=== PATIENT | male | born 1970 | race Caucasian/White ===

== ENCOUNTER 2018-12-17 10:13 | Outpatient (CLI) | payer OTHER, SELFPAY ==
[2018-12-17 12:36] LABS: Anion Gap 10.7 mmol/L (3-11); BUN 20 mg/dL (7-18); CO2 29.3 mmol/L (21.0-32.0); CREATININE 0.81 mg/dL (0.70-1.30); Calcium 9.9 mg/dL (8.5-10.1); Chloride 99 mmol/L (98-107); Glucose 93 mg/dL (70-100); Potassium 4.1 mmol/L (3.5-5.1); Sodium 139 mmol/L (136-145)
== END 2018-12-17 10:33 ==
PROVIDERS: PCP Family Medicine; Visit Provider Family Medicine
DX: I10 Essential (primary) hypertension (principal)
CPT/HCPCS: 36415; 80048

== ENCOUNTER 2019-04-19 08:58 | Outpatient (CLI) | payer OTHER, SELFPAY ==
--- NOTE | 2019-04-19 08:40 | DI.RAD_ITS ---
SYMPTOMS/DIAGNOSIS: LT KNEE PAIN LEG LENGTH STUDY: The left leg measures 94 cm. The right leg 96 cm. Degenerative changes involving the left knee are identified. LEFT KNEE: Severe DJD involving the left knee is noted.
== END 2019-04-19 09:18 ==
PROVIDERS: PCP Family Medicine; Visit Provider Physician Assistant
DX: M25.562 Pain in left knee; M17.12 Unilateral primary osteoarthritis, left knee; M21.70 Unequal limb length (acquired), unspecified site
CPT/HCPCS: 73560; 77073

== ENCOUNTER 2019-06-15 09:10 | Outpatient (CLI) | payer OTHER, SELFPAY ==
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
[2019-06-15 10:32] LABS: HCT 41.2 % (40.0-50.0); HGB 13.9 g/dL (13.5-17.5); Mean Corp. HGB Concentration 33.7 g/dL (32.0-36.0); Mean Corpuscular Hemoglobin 30.7 pg (27.0-33.0); Mean Corpuscular Volume 90.9 fL (80-95); Mean Platelet Volume 9.4 fL (8.0-11.0); Platelet Count 213 x1000/uL (130-400); RBC 4.53 m/cumm (4.50-6.00); RBC Distribution Width 12.5 % (11.8-14.1); White Blood Cell Count 3.85 k/cumm (4.4-10.8)
[2019-06-15 12:20] LABS: BUN 22 mg/dL (7-18); Calcium 9.5 mg/dL (8.5-10.1); Chloride 102 mmol/L (98-107); Glucose 94 mg/dL (70-100); Potassium 4.2 mmol/L (3.5-5.1); Sodium 141 mmol/L (136-145)
== END 2019-06-15 09:30 ==
PROVIDERS: PCP Family Medicine; Visit Provider Student in an Organized Health Care Education/Training Program
DX: M17.12 Unilateral primary osteoarthritis, left knee (principal); Z01.812 Encounter for preprocedural laboratory examination
CPT/HCPCS: 36415; 80048; 85027; NC

== ENCOUNTER 2019-06-22 12:52 | Observation (INO) | payer OTHER, SELFPAY ==
[2019-06-22] VITALS (9 sets, daily range): BP systolic 95–145; BP diastolic 48–95; PULSE 60–73; RESP 15–24; TEMP 36.4–36.7; O2SAT 97–99
[2019-06-22] MEDS: Lactated Ringers 1,000 ML 80 ML IV ×2 (10:22→16:24)
[2019-06-22] MEDS: Acetaminophen 500 MG TAB 1000 MG PO ×2 (10:28→19:53)
[2019-06-22] MEDS: Celecoxib 200 MG CAP 400 MG PO (10:29)
[2019-06-22] MEDS: Gabapentin 300 MG CAP PO ×2 (10:29→21:49)
[2019-06-22] MEDS: Bupivacaine 0.25% Pres-Free 10 ML VIAL (11:15)
[2019-06-22] MEDS: ceFAZolin 2 GM/50 ML BAG IVPB (12:51)
[2019-06-22] MEDS: Bupivacaine 0.25% Pres-Free 30 ML VIAL (15:02)
[2019-06-22] MEDS: Normal Saline 20 ML VIAL (15:02)
[2019-06-22] MEDS: Ketorolac 30 MG/ML VIAL (15:02)
[2019-06-22] MEDS: ceFAZolin 1 GM/50 ML BAG IVPB (18:06)
[2019-06-22] MEDS: Celecoxib 200 MG CAP PO (19:52)
[2019-06-23] MEDS: ceFAZolin 1 GM/50 ML BAG IVPB ×2 (01:13→10:22)
[2019-06-23 03:20] VITALS: BP 113/68; PULSE 59; RESP 20; TEMP 36.5; O2SAT 98
[2019-06-23] MEDS: Lactated Ringers 1,000 ML 80 ML IV (04:45)
[2019-06-23] MEDS: oxyCODONE 5 MG TAB PO ×2 (04:45→10:27)
--- NOTE | 2019-06-23 05:38 | W.PM.OP ---
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 Depuy Attune Cementless Cruciate Retaining Femoral Component, Size 8 2. Depuy Attune Cementless Rotating Platform Tibial Component, Size 7 3. Depuy Attune 8x8mm CR/RP Poly 4. Depuy Attune Patellar Component, Size 38mm Indications: I have seen Earle in clinic for symptoms of knee arthritis, confirmed with radiographic findings. He has exhausted nonoperative methods and was having significant limitations in daily function and desired better function and less pain. I discussed the technical details of a knee replacement. I explained the risks of the procedure to include, but not limited to, bleeding, infection, pain, stiffness, fracture, damage to nerves and vessels, damage to muscles and tendons, loosening, need for repeat procedure, blood clot and cardiopulmonary demise. Despite these risks, Earle elected to proceed. Findings: There was significant signs of arthritis throughout the knee. There was also some residual deformity to the anterior femur and distal femur from the fracture. Procedure Description: Earle was greeted in the preoperative holding area where the correct side was identified and marked. The consent was reviewed with the patient and signed. The history and physical was updated. All questions were answered. Preoperative mediacations were administered: Acetaminophen 1000mg, Celebrex 400mg, Gabapentin 300mg, and Oxycontin 10mg. An adductor canal block was then administered by the anesthesia team in the PACU. Earle was taken back to the operating room. A spinal anesthestic was then administered. The patient was placed into the supine position on the operating room table. A nonsterile tourniquet was placed high onto the leg but not used. Posts were placed for positioning during the procedure. All bony prominences were well padded. Prophylactic antibiotics in the form of Cefazolin were administered. 1g of Tranxemic Acid was given intravenously within 30 minutes of incision. The left leg was then prepped with Chloraprep and draped in a standard fashion with impervious stockinette and extremity drape with Iodine impregnated skin protection. A timeout to confirm correct identity, side and site, procedure, allergies, anesthesia, and medical concerns was performed. With the knee in some flexion, a midline incision was made overlying the knee. Full thickness skin flaps were raised once the extensor mechanism was encountered. These were raised medially and laterally. Any bleeding was controlled with electrocautery. Once the extensor mechanism was fully exposed, a medial parapatellar arthrotomy was performed in a flexed position. All bleeding from the arthrotomy and the geniculate arteries was coagulated. A medial subperiosteal peel was performed with electrocautery to the midcoronal plane. The fat pad was removed while keeping the patellar tendon protected. The anterior distal femur synovium was removed for later visualization. The ACL and PCL were resected and the anterior horn of the lateral meniscus was transected. The knee was then flexed with the patella everted. Large osteophytes from the tibia were removed. Large osteophytes from the femur were removed. There is some notable irregularity to the anterior distal femur. A single starting pin was then placed 1cm anterior to the PCL insertion and the notch in the direction of the femoral head. The OrthoAlign device was applied over the pin. It was oriented to be in line with the epicondylar axis and the trochlear groove. It was then pinned into place. The navigation computer was then turned on and calibrated. The distal femur cut was set at 0 degrees varus/valgus and 3 degrees flexion. The distal femur cutting guide then was positioned for a 9mm cut. The distal femur was cut with an oscillating saw while protecting the soft tissues. The tibia was then addressed. The OrthoAlign device was placed over the tibial tubercle and medial tibia and secured into position. Once again, OrthoAlign was calibrated and then set for a 0 degree varus/valgus cut and 7 degrees of posterior slope. With this locked into position, the cut thickness stylus was used to assess cut thickness. The medial side, most involved side, was set for a 4mm cut. This was then held in position and pinned into place with 2 additional pins and a cross pin for stability. The medial and lateral collateral ligaments were protected and the cut was performed. With this completed, it was assessed and noted to be of appropriate dimensions. The guide and OrthoAlign was removed. A spacer block was inserted and the knee was brought into extension. The 7mm spacer block provided full extension, without hyperextension and with stability of both the medial and lateral collateral ligaments was assessed. The pins from the femur and the tibia were then removed. The distal femur was then sized. The anterior stylus was placed onto the lateral ridge of the anterior femur. This indicated a size 8 femur. The external rotation of the guide was adjusted to 5 degrees to match the epicondylar axis, perpendicular to Nuzhat?s line. The 4-in-1 cutting guide was the placed. The posterior medial femur cut was evaluated and appeared of good thickness. The spacer block was inserted underneath the cutting guide and stability was confirmed in 90 degrees of flexion. An kala wing was used to confirm appropriate position of the anterior cut to avoid notching. This cutting guide was ensured to be flush on the cut surface and then pinned into place with headed pins. While protecting the soft tissues, quad tendon, and collateral ligaments, the anterior and posterior cuts were performed with a saw. The central two pins were removed and the posterior and anterior chamfers were cut next. The notch-cutting guide was placed. This was pinned to lateralize the femoral component as much as possible while keeping it flush on the cut surface. This was then pinned into position. A reciprocating saw was used to make the notch cut. A rasp smoothed the cut surfaces. A trial posterior stabilized femoral component was then inserted, impacted down to the cut surfaces, and the lug holes were drilled. A provisional trial tibial component was placed and the knee was brought through range of motion. The polyethylene was trialed until there was good flexion and extension with excellent stability to the medial and lateral collaterals. The patella was tracking without thumbs. The tibial cut surface was fully exposed. The medial and lateral menisci were removed. The tibia was then sized as a 7. The tibia had been previously marked during trialing to correspond to the center of the tibial component to help with rotation. The trial was aligned to this kofi, approximately rotated to the medial 1/3rd of the tibial tubercle. The trial was pinned into place. The tibia was prepared with a reamer and a keel punch and 4 drill holes. The knee was then brought into extension and the patella was measured as 25 mm. Using the patellar clamp and cut guide, this was resected to a flat surface with at least 13mm of thickness remaining. The size 38 patella fit the best. This was oriented and then clamped into position. The lugs were drilled. The trial components were removed. The final components, except for the polyethylene were opened on the back table. The periosteal and capsular tissues, especially posteriorly, around the knee were then systematically injected with a periarticular cocktail consisting of 50cc 0.25% Marcaine, 30mg Ketorolac, 20cc of Exparal and 50cc of injectable saline. The knee was thoroughly irrigated with a pulse lavage to remove any loose debris on the cut surfaces and dried. The knee was also irrigated with Irrisept, chlorhexidine solution. The tibial component was then inserted into the cut surface and impacted into position after aligning appropriately. There is excellent positioning of the tibial component onto the tibial surface with no gapping. The femoral cut surface was once again cleaned and dried. The femoral component was lined with the lug holes and impacted. It was ensured to be down against the cut surface. While this was being performed, one batch of cement was prepared on the back table. This was then manually pressurized into the patellar surface and the 38 mm patellar button was inserted and clamped. The trial polyethylene was then inserted and the leg was brought through range of motion. There is good stability both in extension and in flexion. There was some rocking of the polyethylene at about 130 degrees of flexion but no spin out. After the cement had finally cured, approximately 15min, the clamp was removed from the patella. A size 8mm polyethylene component provided the best range of motion and stability with less than 2mm gapping with medial and lateral stress and full extension without significant hyperextension. The patella was tracking with a no-thumbs technique. The trial poly was removed. The poly component was then inserted and impacted into position after cleaning and drying the tibial tray. The capsule was then reapproximated with a No. 1 Vicryl at multiple locations. The capsule was finally closed with a No. 2 Stratafix, barbed suture. The second dosing of 1g TXA was started. Deep tissues were then reapproximated with 0 Vicryl and 2-0 Vicryl. The skin was closed with a running 3-0 Monocryl in a subcuticular fashion. This was reinforced with skin glue. A Mepilex silver dressing was applied along with a [id number] SOY wrap. A CryoCuff was applied. Earle was transferred to the hospital bed without difficulty an suffering no apparent complication. Earle has a good prognosis. Physical therapy will start today and without restrictions, weight-bearing as tolerated. Aspirin 81mg BID will be used for DVT prophylaxis.
[2019-06-23] MEDS: Celecoxib 200 MG CAP PO (07:39)
[2019-06-23] MEDS: Pantoprazole 40 MG TABCR PO (07:39)
[2019-06-23] MEDS: Acetaminophen 500 MG TAB 1000 MG PO (07:39)
[2019-06-23] MEDS: Dexamethasone 4 MG TAB PO (07:39)
[2019-06-23 07:41] VITALS: BP 141/81; PULSE 74; RESP 16; TEMP 36; O2SAT 99
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
== END 2019-06-23 11:50 | disposition home or self-care (01) ==
LOC: MS 18:07
PROVIDERS: Admitting Provider Student in an Organized Health Care Education/Training Program; PCP Family Medicine; Visit Provider Student in an Organized Health Care Education/Training Program
PROC: 0SRD0J9 Replacement of Left Knee Joint with Synthetic Substitute, Cemented, Open Approach (ICD-10-PCS; CPT 27447; principal; 2019-06-22 11:45)
DX: M17.32 Unilateral post-traumatic osteoarthritis, left knee (principal); M25.562 Pain in left knee; Z96.652 Presence of left artificial knee joint; S72.452 Displaced supracondylar fracture without intracondylar extension of lower end of left femur; V03.99XS Pedestrian with other conveyance injured in collision with car, pick-up truck or van, unspecified whether traffic or nontraffic accident, sequela; Z23 Encounter for immunization
CPT/HCPCS: 27447; C1776; 76942; 97162; NC; G0378; J0360; J0690; J1100; J1885; J2250; J2405; J8540

== ENCOUNTER 2019-07-08 09:36 | Outpatient (CLI) | payer OTHER, SELFPAY ==
--- NOTE | 2019-07-08 09:45 | DI.RAD_ITS ---
EXAM: XR KNEE LT 1V, Standing alignment XR INDICATION: 1ST POST OP TOTAL KNEE. COMPARISON: XR knee LT 1V from 04/19/2019 XR standing alignment from 04/19/2019 XR STANDING ALIGNMENT from 07/08/2019 TECHNIQUE: 2D digital imaging was performed. FINDINGS: Left knee: The patient is status post placement of a left total knee per prosthesis. The component s appear well aligned. There is some anterior soft tissue swelling. Standing alignment: Standing AP views were performed from the iliac crests through the ankles. There is a left total knee prosthesis. The right knee shows preserved joint spaces. Hip joint spaces are well maintained. The right femoral head projects superior to the left by 18 millimeters. There is mild deformity of the distal left femur related to an old fracture. There are mild degenerative carvalho ges of both ankles. IMPRESSION: Left total knee prosthesis. Leg length discrepancy.
== END 2019-07-08 09:56 ==
PROVIDERS: PCP Family Medicine; Visit Provider Student in an Organized Health Care Education/Training Program
DX: Z96.652 Presence of left artificial knee joint (principal); Z47.1 Aftercare following joint replacement surgery; M21.70 Unequal limb length (acquired), unspecified site
CPT/HCPCS: 73560; 77073

== ENCOUNTER 2019-11-18 11:11 | Outpatient (CLI) | payer OTHER, SELFPAY ==
--- NOTE | 2019-11-18 10:30 | DI.RAD_ITS ---
EXAM: XR KNEE LT 3V AP,LAT,CHRISTEL CLINICAL HISTORY: worsening left knee pain TECHNIQUE: 2D digital imaging was performed. COMPARISON: XR STANDING ALIGNMENT from 07/08/2019 XR KNEE LT 1V from 07/08/2019 FINDINGS: There has been no change in the appearance of the total knee prosthesis. Old healed fracture deform ity of the distal femur is again noted. IMPRESSION: Stable appearance of knee prosthesis.
== END 2019-11-18 11:31 ==
PROVIDERS: PCP Family Medicine; Visit Provider Student in an Organized Health Care Education/Training Program
DX: M25.562 Pain in left knee (principal); Z96.652 Presence of left artificial knee joint; Z47.1 Aftercare following joint replacement surgery
CPT/HCPCS: 73562

== ENCOUNTER 2019-11-18 12:26 | Outpatient (REF) | payer OTHER, SELFPAY ==
[2019-11-18 14:28] LABS: Source L KNEE
[2019-11-18 14:29] LABS: Clarity CLOUDY
[2019-11-18 14:31] LABS: Polynuclear Cells 7 % (0-0)
[2019-11-18 14:32] LABS: Mononuclear Cells 93 % (0-0)
== END 2019-11-18 12:46 ==
LOC: LBN 12:26
PROVIDERS: PCP Family Medicine; Visit Provider Student in an Organized Health Care Education/Training Program
DX: M25.462 Effusion, left knee (principal)
CPT/HCPCS: 87070; 87075; 87205; 89051

== ENCOUNTER 2020-02-11 09:34 | Outpatient (CLI) | payer OTHER, SELFPAY ==
--- NOTE | 2020-02-11 08:00 | DI.RAD_ITS ---
EXAM: XR KNEE LT 3V AP,LAT,CHRISTEL INDICATION: knee pain. COMPARISON: CR XR KNEE LT 3V AP,LAT,CHRISTEL from 11/18/2019 TECHNIQUE: 2D digital imaging was performed. FINDINGS: There has been no change in the total knee prosthesis or surrounding bone. Deformity of the distal femur related to old fracture is again noted. DATA REPOSITORY: RADIATION DOSE DELIVERED:
[2020-02-11 12:09] LABS: Clarity Cloudy
[2020-02-11 12:29] LABS: Mononuclear Cells 98 % (0-0); Polynuclear Cells 2 % (0-0)
== END 2020-02-11 09:54 ==
PROVIDERS: PCP Family Medicine; Referring Provider Family Medicine; Visit Provider Student in an Organized Health Care Education/Training Program
DX: M25.562 Pain in left knee (principal); Z96.652 Presence of left artificial knee joint
CPT/HCPCS: 73562; 89051; 89060

== ENCOUNTER 2020-07-03 11:49 | Outpatient (CLI) | payer OTHER, SELFPAY ==
--- NOTE | 2020-07-03 07:45 | DI.RAD_ITS ---
EXAM: XR KNEE LT 2V AP,LAT CLINICAL HISTORY: annual f/u tka TECHNIQUE: COMPARISON: CR XR KNEE LT 3V AP,LAT,CHRISTEL from 02/11/2020 FINDINGS: Two views were obtained and show total knee joint replacement position. Components appear well seate d. Note is again made of old healed fracture of the distal femoral diaphyseal metaphyseal junction. IMPRESSION: RADIATION DOSE DELIVERED: Total DLP Total DLP
== END 2020-07-03 12:09 ==
PROVIDERS: PCP Nurse Practitioner Family; Referring Provider Nurse Practitioner Family; Visit Provider Student in an Organized Health Care Education/Training Program
DX: Z96.652 Presence of left artificial knee joint (principal)
CPT/HCPCS: 73560

== ENCOUNTER 2020-08-17 02:39 | Outpatient (CLI) | payer OTHER, SELFPAY ==
[2020-08-18 15:25] LABS: COVID-19 RT-PCR Result NEGATIVE (Negative)
== END 2020-08-17 02:59 ==
PROVIDERS: PCP Nurse Practitioner Family; Visit Provider Surgery
DX: Z11.52 Encounter for screening for COVID-19 (principal); Z01.818 Encounter for other preprocedural examination
CPT/HCPCS: U0003

== ENCOUNTER 2020-08-21 12:13 | Day surgery (SDC) | payer OTHER, SELFPAY ==
--- NOTE | 2020-08-18 15:14 | NUR.NOTE ---
X2 Attempts to reach patient unsuccessfully, Voicemail left. arrival time of 1215 given to patient, NPO status explained, enter through main entrance, have ride home set up in place prior to arrival, review bowel prep instructions prior to starting. Nursing Note:
--- NOTE | 2020-08-21 07:12 | COLE_ITS ---
Date of service: 08/21/20 Time of Service: 13:38 Colonoscopy Report Date of procedure: 08/21/20 Pre-op diagnosis general: Colon Cancer Screening Post-op diagnosis procedure note: same Procedure: Colonoscopy Surgeon: Deepali Jones Anesthesia proc note operative: other (General/ASA 2/Franco Villaseñor, WILBERT) Estimated blood loss (mL): 0 Pathology: none sent Complications: None Disposition: same day Indications: The patient is here for Colonoscopy pre-op. He has no family history of colon cancer. He has not had any bowel habit changes. -Discussed colonoscopy bowel prep as well as the procedure. Discussed possible complications of the procedure to include bleeding, pain, perforation, missed small lesion/polyp, sore throat, aspiration and adverse reaction to the medications. Questions were answered to patient?s satisfaction. No guarantees were implied or given. Prep: Miralax/Dulcolax Procedure Start Time: 13:38 Procedure End Time: 13:54 Retraction Time: 8 minutes Findings: Normal healthy colon Procedure Description: After informed consent was obtained the patient was taken to the procedure room and placed in a left decubitous position. Monitors were applied and a time out was done. The patients name, date of , pr ocedure, allergies to medications and metal in their body was reviewed. The patient was then sedated. Once sedated and comfortable a rectal exam was done. External exam was normal. Internal exam revealed a normal sphincter tone and no palpable masses. The prostate felt smooth. The scope was then introduced and retro-flexed. No internal hemorrhoids, polyps or masses were identified on retro-flexion. The scope was then advanced to the cecum without difficulty. The ileocecal valve and appendiceal orifice were identified. The prep was adequate. The scope was then slowly retracted over 8 minutes back into the rectum. There were no polyps. There was no diverticulosis noted. The scope was removed and the patient was woken up and taken back to Same day surgery in stable condition. The patient tolerated the procedure well and there were no immediate complications. Follow up: The patient should follow up in 10 years unless they develop changes in bowel habits or other new gastrointestinal complaints.
--- NOTE | 2020-08-21 07:12 | W.PM.DSUDISC ---
Discharge Plan Disposition Patient Disposition: HOME Condition: Good Discharge Details Reason For Visit: Colon Cancer Screening Attending Provider: Deepali Jones Primary Care Provider: Citlalli Jimenez Home Meds and New Rx's Prescriptions: Continued acetaminophen 500 mg tablet 1,000 mg PO Q8H PRN (Reason: pain) Qty: 90 RF: 3 Excedrin Migraine 1 EACH tablet 1 ea PO PRN RF: 0 sumatriptan succinate [Imitrex] 50 mg tablet 50 mg PO PRN Qty: 6 RF: 4 Discontinued polyethylene glycol 3350 17 gram/dose powder 238 g PO ONCE Qty: 238 RF: 0 bisacodyl [Dulcolax (bisacodyl)] 5 mg tablet,delayed release (DR/EC) 5 mg PO ONCE Qty: 4 RF: 0 Discharge Instructions Additional Instructions: Findings: normal colonoscopy Follow up: 10 years Please call if you develop: fevers >101.5 Nausea or Vomiting Abdominal pain that is not transient DAY SURGERY UNIT POST ENDOSCOPY INSTRUCTIONS 1. Because there will be medication in your system for the next 24 hours, you may feel a little sleepy. Your coordination will be affected. Therefore: a. Do not drive or operate dangerous equipment for 24 hours. b. Do not drink alcohol beverages for 24 hours (not even beer). c. Plan to go home and rest for the day. 2. Generally there are no restrictions on your activity after a day or so has gone by, but you may feel a bit fatigued for a few days. 3 After you arrive home you may have a light meal and return to a normal diet as you can tolerate it without feeling sick to your stomach. 4. After surgery, you may feel pain or discomfort. This should be only transient, but if it persists please contact your doctor. 5. If there are any questions regarding the findings of your procedure, please feel free to contact your doctor. 6. If you are unable to contact your doctor with a problem, contact the hospital at [phone]. 7. Continue all your regular medications unless directed otherwise. I understand the above instructions and have no questions. Signature of Patient or Responsible Adult Escort Date/Time Name of Responsible Adult Escort Signature of Nurse Date/Time Activity:: Activity as Tolerated Diet:: As Tolerated Discharge Orders Discharge Orders: Discharge Order (Routine); Ordered 08/21/20 Ordered By: Deepali Jones
[2020-08-21 12:45] VITALS: BP 112/81; PULSE 105; RESP 16; TEMP 36.6; O2SAT 96
[2020-08-21] MEDS: Lactated Ringers 1,000 ML 80 ML IV (13:03)
[2020-08-21 14:26] VITALS: BP 127/85; PULSE 80; RESP 16; TEMP 36.7; O2SAT 97
== END 2020-08-21 14:50 | disposition home or self-care (01) ==
LOC: SUR 12:13
PROVIDERS: PCP Nurse Practitioner Family; Visit Provider Surgery
PROC: 0DJD8ZZ Inspection of Lower Intestinal Tract, Via Natural or Artificial Opening Endoscopic (ICD-10-PCS; CPT 45378; principal; 2020-08-21 13:30)
DX: Z12.11 Encounter for screening for malignant neoplasm of colon (principal)
CPT/HCPCS: 45378

== ENCOUNTER 2020-08-23 10:34 | Outpatient (REF) | payer OTHER, SELFPAY ==
[2020-08-23 13:39] LABS: HCT 43.4 % (40.0-50.0); HGB 14.7 g/dL (13.5-17.5); MCH 30.5 pg (27.0-33.0); MCHC 33.9 % (32.0-36.0); Platelet Count 226 10^3/uL (130-400); RBC 4.82 10^6/uL (4.36-5.78); RDW 11.9 % (11.8-14.1); RDW-SD 39.3 fL; WBC 4.15 10^3/uL (4.4-10.8)
[2020-08-23 13:58] LABS: ALT 36 U/L (16-63); AST 27 U/L (15-37); Albumin 4.5 g/dL (3.4-5.0); Alkaline Phosphatase 49 U/L (46-116); Anion Gap 5.8 mmol/L (3-11); BUN 20 mg/dL (7-18); Bilirubin, Total 2.7 mg/dL (0.2-1.0); CO2 30.2 mmol/L (21.0-32.0); CREATININE 1.01 mg/dL (0.70-1.30); Calcium 9.7 mg/dL (8.5-10.1); Chloride 100 mmol/L (98-107); Glucose 88 mg/dL (74-106); Potassium 4.3 mmol/L (3.5-5.1); Sodium 136 mmol/L (136-145); Total Protein 7.9 g/dL (6.4-8.2)
== END 2020-08-23 10:54 ==
LOC: NCHCN 10:34
PROVIDERS: PCP Nurse Practitioner Family; Visit Provider Nurse Practitioner Family
DX: Z01.818 Encounter for other preprocedural examination (principal)
CPT/HCPCS: 80053; 85027

== ENCOUNTER 2020-08-28 04:41 | Outpatient (CLI) | payer OTHER, SELFPAY ==
[2020-08-29 14:35] LABS: COVID-19 RT-PCR UVMMC Result Negative (Negative)
== END 2020-08-28 05:01 ==
PROVIDERS: PCP Nurse Practitioner Family; Visit Provider Nurse Practitioner Family
DX: Z11.52 Encounter for screening for COVID-19 (principal); Z01.818 Encounter for other preprocedural examination
CPT/HCPCS: U0003

== ENCOUNTER 2021-01-08 11:35 | Outpatient (CLI) | payer OTHER, SELFPAY ==
--- NOTE | 2021-01-08 08:00 | DI.RAD_ITS ---
Exam(s) XR KNEE LT 2V AP,LAT EXAM: XR KNEE LT 2V AP,LAT CLINICAL HISTORY: ANNUAL F/U L TKA. TECHNIQUE: 2D digital imaging was performed. COMPARISON: CR XR KNEE LT 2V AP,LAT from 07/03/2020 FINDINGS: There are stable postsurgical changes of a left total knee replacement. No evidence of hardware fail ure is seen. The bones are intact. No acute fracture or dislocation. The bones are normally minera lized. There is an old healed deformity of the distal femur. The soft tissues are unremarkable. IMPRESSION: Stable left TKR. DATA REPOSITORY: RADIATION DOSE DELIVERED:
== END 2021-01-08 11:36 | disposition home or self-care (01) ==
LOC: DIORS 11:35
PROVIDERS: PCP Nurse Practitioner Family; Referring Provider Nurse Practitioner Family; Visit Provider Student in an Organized Health Care Education/Training Program
DX: Z96.652 Presence of left artificial knee joint (principal); Z47.1 Aftercare following joint replacement surgery
CPT/HCPCS: 73560

== ENCOUNTER 2021-05-16 04:07 | Outpatient (CLI) | payer OTHER, SELFPAY ==
[2021-05-16 10:25] LABS: Anion Gap 6.4 mmol/L (3-11); BUN 18 mg/dL (7-18); CO2 30.6 mmol/L (21.0-32.0); CREATININE 0.8 mg/dL (0.70-1.30); Calcium 9.4 mg/dL (8.5-10.1); Calculated LDL 87 mg/dL (<100); Chloride 104 mmol/L (98-107); Cholesterol 194 mg/dL (<200); Glucose 102 mg/dL (74-106); HDL Cholesterol 101 mg/dL (40-60); Potassium 4.1 mmol/L (3.5-5.1); Sodium 141 mmol/L (136-145); Triglyceride 30 mg/dL (<150)
[2021-05-16 11:09] LABS: Hemoglobin A1C 5.5 % (<5.7)
[2021-05-16 17:11] LABS: FSH 31.1 mIU/mL (1.4-18.1); LH 5.5 mIU/mL (1.5-9.3); Prolactin 8.3 ng/mL (2.1-17.7)
[2021-05-18 17:03] LABS: Testosterone, Total 712 ng/dL (240-950)
== END 2021-05-16 04:08 | disposition home or self-care (01) ==
LOC: LBO 04:07
PROVIDERS: PCP Nurse Practitioner Family; Visit Provider Nurse Practitioner Family
DX: Z00.00 Encounter for general adult medical examination without abnormal findings (principal)
CPT/HCPCS: 36415; 80048; 80061; 84403; 83001; 83002; 83036; 84146

== ENCOUNTER 2021-07-26 19:20 | Outpatient (REF) | payer OTHER, SELFPAY ==
[2021-07-26 17:37] LABS: Anion Gap 7.9 mmol/L (3-11); BUN 31 mg/dL (7-18); CO2 29.1 mmol/L (21.0-32.0); CREATININE 0.9 mg/dL (0.70-1.30); Chloride 105 mmol/L (98-107); Glucose 103 mg/dL (74-106); Potassium 4.1 mmol/L (3.5-5.1); Sodium 142 mmol/L (136-145)
== END 2021-07-26 19:21 | disposition home or self-care (01) ==
LOC: LBN 19:20
PROVIDERS: PCP Nurse Practitioner Family; Visit Provider Nurse Practitioner Family
DX: I10 Essential (primary) hypertension (principal)
CPT/HCPCS: 80048

== ENCOUNTER 2021-08-24 08:19 | Outpatient (CLI) | payer OTHER, SELFPAY ==
--- NOTE | 2021-08-24 08:27 | DI.RAD_ITS ---
Exam(s) XR KNEE LT 2V AP,LAT EXAM: XR KNEE LT 2V AP,LAT INDICATION: left TKA. COMPARISON: CR XR KNEE LT 2V AP,LAT from 01/08/2021 TECHNIQUE: 2D digital imaging was performed. FINDINGS: There has been no change in the total knee prosthesis. No abnormal bony lucencies are seen. Old hea led fracture deformity of the distal femoral shaft is again noted. DATA REPOSITORY: RADIATION DOSE DELIVERED:
== END 2021-08-24 08:20 | disposition home or self-care (01) ==
LOC: DIORS 08:19
PROVIDERS: PCP Nurse Practitioner Family; Referring Provider Nurse Practitioner Family; Visit Provider Physician Assistant
DX: Z96.652 Presence of left artificial knee joint (principal)
CPT/HCPCS: 73560

== ENCOUNTER 2022-06-14 12:03 | Outpatient (CLI) | payer BC, SELFPAY ==
[2022-06-14 09:40] LABS: Anion Gap 6.4 mmol/L (3-11); BUN 24 mg/dL (7-18); CO2 29.6 mmol/L (21.0-32.0); CREATININE 0.8 mg/dL (0.70-1.30); Calcium 9.3 mg/dL (8.5-10.1); Chloride 105 mmol/L (98-107); Estimated GFR 105.17 (mL/min/1.73m2); Glucose 101 mg/dL (74-106); Sodium 141 mmol/L (136-145); TSH (W/Ref FT4) 1.64 uIU/mL (0.36-3.74)
[2022-06-14 19:51] LABS: PSA, Screening 0.5 ng/mL (<=3.5)
== END 2022-06-14 12:04 | disposition home or self-care (01) ==
LOC: LBO 12:05
PROVIDERS: PCP Nurse Practitioner Family; Visit Provider Nurse Practitioner Family
DX: I10 Essential (primary) hypertension (principal); N40.0 Benign prostatic hyperplasia without lower urinary tract symptoms; Z12.5 Encounter for screening for malignant neoplasm of prostate
CPT/HCPCS: 36415; 80048; 84153; 84443

== ENCOUNTER 2022-08-20 06:17 | Day surgery (SDC) | payer BC, SELFPAY ==
[2022-08-20] VITALS (11 sets, daily range): BP systolic 69–133; BP diastolic 36–93; PULSE 56–68; RESP 14–17; TEMP 35.5–36.3; O2SAT 96–99; BMI 26.5
[2022-08-20] MEDS: Lactated Ringers 1,000 ML 80 ML IV (06:46)
[2022-08-20] MEDS: Acetaminophen 500 MG TAB 1000 MG PO (06:47)
[2022-08-20] MEDS: Gabapentin 300 MG CAP 600 MG PO (06:47)
[2022-08-20] MEDS: Celecoxib 200 MG CAP PO (06:48)
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
--- NOTE | 2022-08-20 07:11 | PDOC.DSDIS_ITS ---
Date of service: 08/20/22 Time of Service: 07:11 Discharge Plan Disposition Patient Disposition: Home Condition: Good Discharge Details Reason For Visit: Left inguinal hernia repair Attending Provider: Rito Bean Primary Care Provider: Citlalli Jimenez Home Meds and New Rx's Prescriptions: New tramadol 50 mg tablet 50 mg PO Q8H PRN (Reason: pain) Qty: 9 0RF Rx Instructions: Take 1 tablet by mouth up to every 8 hours if needed for severe pain. Be careful as this medication is addictive. Do not drive while using this medication. Continued acetaminophen 500 mg tablet 1,000 mg PO Q8H PRN (Reason: pain) Qty: 90 3RF Excedrin Migraine 250-250-65 mg tablet 1 tab PO ONCE losartan 50 mg tablet 50 mg PO DAILY Qty: 90 3RF sumatriptan succinate [Imitrex] 50 mg tablet 50 mg PO ONCE PRN (Reason: migraine headache) Qty: 30 1RF Rx Instructions: Take at first onset of migraine headache, repeat once in 2hrs if needed. Discharge Instructions Instructions: Inguinal Hernia (GEN) Additional Instructions: 1. Resume all of your medications. 2. Okay to use tylenol and ibuprofen over the counter as needed. 2. Use tramadol as needed for severe pain. 3. Heating pads and cold ice packs are fine to use for pain 4. Leave bandage in place for 24 hours, then remove. 5. Shower with warm soapy water. Pat dry. Use a bandaid if needed to protect your clothing. 6. No soaking or tub baths until I see you in the office. 7. No heavy lifting until I see you in the office. 8.Call the office (or go directly to the emergency room after hours) if you notice any of the following: Develop chills (warm to touch), or if you have a thermometer and your temperature is above 101 Difficulty breathing or difficultly swallowing Persistent vomiting Any bleeding ? exceeding one tablespoon 6. Call your physician if the site where your intravenous was started becomes red, swollen, painful, and warm to touch. Referrals: Rito Bean MD [ [facility] STAFF PHYSICIAN] - Activity:: Activity as Tolerated Diet:: As Tolerated DS: Diagnosis Discharge Diagnosis (1) Left inguinal hernia: Status: Acute Asessment and Plan: Earle, we were able to find your hernia quite nicely, and get everything put back in place. The operation went very smoothly. Hopefully, this will solve the discomfort you have been experiencing in your left (and may be a right groin). We will see you in the office in routine follow-up, and we can reassess the right spine at that time.
--- NOTE | 2022-08-20 07:15 | ROE_ITS ---
Date of service: 08/20/22 Time of Service: 08:48 Operative Note Operative Note DATE OF PROCEDURE: 08/20/22 PRE-OP DIAGNOSIS: Left inguinal hernia POST-OP DIAGNOSIS: same PROCEDURE: Left inguinal herniorrhaphy with mesh SURGEON: Rito Bean REGISTERED NURSE SURGICAL SERVICES: Tala Milton ANESTHESIA TYPE: General LMA/ETT Refer to Anesthesia Record ESTIMATED BLOOD LOSS: 25 PATHOLOGY: none sent COMPLICATIONS: None Patient was transported to: PACU Patient's condition: stable Implants: Bard PerFix light plug large Indications: Earle is a 52-year-old male with a painful left-sided inguinal hernia Procedure Description: I began by confirming the correct site with the patient. Next, after induction of general anesthesia, they performed a ultrasound-guided left-sided tap block. The surgical site was then prepped and draped in the usual fashion. I began by making an oblique incision over the left inguinal region. I dissected down through the skin to the deep fascia. Next, I incised the fascia along the length of the inguinal canal to the external ring. I then carefully identified the ilioinguinal nerve and sharply divided it. Once this was complete, I bluntly dissected the shelving edge of the inguinal ligament down towards the pu bic tubercle. Here, I encircled all cord structures with a Janes drain. Next, I began dissecting the specific cord structures. Great care was taken to spare the vas deferens and the blood supply to the testicle. Next, I isolated the hernia sac from the other inguinal structures. I reduced it back to its normal anatomic position. I used a large Bard PerFix light plug to obliterate the internal ring defect, and I fixed it in place. Next, I buttressed the posterior floor of the inguinal canal with a large mesh patch. I started by fixing it to the pubic tubercle. Next, I used Prolene sutures to affix it to the shelving edge of the inguinal ligament and the conjoined tendon. Laterally I tacked it to the transversalis fascia and reconstructed an internal ring without any strain on the cord structures. Once this was complete, I irrigated the surgical field. It appeared hemostatic. I then closed the anterior portion of the fascia to reconstruct the front wall of the inguinal canal. I did this with interrupted Vicryl stitches. Once again, I irrigated the surgical field and inspected for hemostasis. Finally, I approximated the superficial fascia and the deep layers of the skin with absorbable suture. Skin was closed with running subcuticular stitches. Bandages were applied, the patient was awakened and transferred to the recovery unit.
[2022-08-20] MEDS: ceFAZolin 2 GM/50 ML BAG IVPB (07:41)
--- NOTE | 2022-08-20 08:14 | W.ANESNERVE ---
Nerve Block Single Injection Procedure Date and Time Date Performed: 08/20/22 Procedure Start: 07:35 Location Where Procedure Performed Procedure Location: Operating Room Procedure Stop: 07:44 Reason Performed: Postoperative Analgesia Requesting Provider: Rito Bean Timeout Performed Timeout Performed: Yes Monitoring Used ECG, Blood Pressure, SpO2, ETCO2 and See EMR for corresponding vital signs Sterility Sterility: Hand Hygiene, Surgical Cap, Surgical Mask, Sterile Gloves and Chlorhexidine Sedation Given During Procedure Sedation Given (Indicate Dose Given): No Sedation given Patient Mental Status Patient Mental Status: Performed under general anesthesia Nerve Block 1st Nerve Block: Laterality: Left Block Type: TAP Unilateral Ultrasound Image Saved?: Yes Needle / Catheter Used: 80mm SonoPlex II Local Anesthetic Bolus (Indicate Dose Given): Bupivacaine 0.25% Dose:: 30 ml Additives (Indicate Dose Given): None Ultrasound: Sterile probe cover and gel used Nerve Stimulator: Not Used Paresthesia: None Procedure Tolerated: No Complications and Patient tolerated well Procedure Outcome: Successful Performed By: Eliza Escobedo Supervised By: Franco Segundo
[2022-08-20] MEDS: Bupivacaine 0.5% Pres-Free W/EPI 30 ML VIAL (08:37)
[2022-08-20] MEDS: ePHEDrine 25 MG/5 ML Syringe IVP (08:51)
[2022-08-20] MEDS: fentaNYL 100 MCG/2 ML VIAL IVP (09:16)
[2022-08-20] MEDS: traMADol 50 MG TAB 100 MG PO (10:05)
--- NOTE | 2022-08-20 12:17 | W.ANESPOSTOP ---
Postoperative Evaluation Date, Time and Location Date Performed: 08/20/22 Time Performed: 12:17 Patient Location: Day Surgery Unit Vital Signs Most Recent Imported Vital Signs: Most Recent Vital Signs Temp Pulse Resp BP Pulse Ox 36.3 C L 67 16 132/93 H 98 08/20/22 10:52 08/20/22 10:52 08/20/22 10:52 08/20/22 10:52 08/20/22 10:52 Pain Score Most Recent Pain Score: Most Recent Pain Score Pain Level 3 08/20/22 10:52 Assessment Mental Status: Awake (Alert & Oriented to Patient Baseline) Airway and Respiratory Function: Patent airway with normal (patient baseline) respiratory exam Cardiovascular Function: Hemodynamically Stable Hydration Status: Adequately Hydrated Nausea & Vomiting: No Nausea or Vomiting Pain: Pain is tolerable per patient Peripheral Nerve Block: Regional nerve block not resolved at time of post operative discharge
== END 2022-08-20 11:10 | disposition home or self-care (01) ==
PROVIDERS: PCP Nurse Practitioner Family; Visit Provider Surgery
PROC: (CPT 49505; principal; 2022-08-20 07:30)
DX: K40.90 Unilateral inguinal hernia, without obstruction or gangrene, not specified as recurrent (principal); I10 Essential (primary) hypertension
CPT/HCPCS: 49505; 76942; C1781; J0690; J1100; J2405; J2704; J3010

== ENCOUNTER 2022-10-24 09:31 | Outpatient (CLI) | payer BC, SELFPAY ==
--- NOTE | 2022-10-24 08:15 | DI.RAD_ITS ---
Exam(s) XR KNEE LT 2V AP,LAT EXAM: XR KNEE LT 2V AP,LAT CLINICAL HISTORY: F/U TKR. TECHNIQUE: 2D digital imaging was performed. Two images were obtained. AP and lateral views were ob tained. COMPARISON: CR XR KNEE LT 2V AP,LAT from 08/24/2021 FINDINGS: BONES: There are stable post operative changes present. No fracture or dislocation. There is an old healed fracture deformity of the distal femur. JOINTS: The orthopedic hardware is in good position. No evidence of hardware loosening. SOFT TISSUE: Normal. IMPRESSION: Stable postoperative changes. DATA REPOSITORY: RADIATION DOSE DELIVERED:
== END 2022-10-24 09:32 | disposition home or self-care (01) ==
LOC: DIORS 09:31
PROVIDERS: PCP Nurse Practitioner Family; Referring Provider Nurse Practitioner Family; Visit Provider Student in an Organized Health Care Education/Training Program
DX: Z96.652 Presence of left artificial knee joint (principal); Z47.1 Aftercare following joint replacement surgery
CPT/HCPCS: 73560

== ENCOUNTER 2023-08-22 11:08 | Outpatient (CLI) | payer BC, SELFPAY ==
[2023-08-22 12:32] LABS: Anion Gap 9.6 mmol/L (3-11); BUN 24 mg/dL (7-18); CO2 28.4 mmol/L (21.0-32.0); CREATININE 1.1 mg/dL (0.70-1.30); Calcium 9.9 mg/dL (8.5-10.1); Chloride 100 mmol/L (98-107); Estimated GFR 79.28 (mL/min/1.73m2); Glucose 115 mg/dL (74-106); Potassium 3.7 mmol/L (3.5-5.1); Sodium 138 mmol/L (136-145)
== END 2023-08-22 11:09 | disposition home or self-care (01) ==
LOC: LOS 11:09
PROVIDERS: PCP Nurse Practitioner Family; Visit Provider Nurse Practitioner Family
DX: Z00.00 Encounter for general adult medical examination without abnormal findings (principal); I10 Essential (primary) hypertension
CPT/HCPCS: 36415; 80048

== ENCOUNTER 2024-07-05 16:08 | Outpatient (CLI) | payer BC, SELFPAY ==
--- NOTE | 2024-07-05 15:03 | DI.RAD_ITS ---
Exam(s) XR SHOULDER RT COMPLETE 2+V EXAM: XR SHOULDER RT COMPLETE 2+V CLINICAL HISTORY: R SHOULDER PAIN. TECHNIQUE: 2D digital imaging was performed. Five views. COMPARISON: No exams were available for comparison FINDINGS: BONES: No acute fracture is present. No bony destructive lesion is seen. Spurring at the greater and lesser tuberosities. JOINTS: No dislocation present. Glenohumeral joint space is maintained. Minimal spurring at the gle noid. SOFT TISSUE: Normal. IMPRESSION: Mild degenerative changes. DATA REPOSITORY: RADIATION DOSE DELIVERED:
== END 2024-07-05 16:09 | disposition home or self-care (01) ==
LOC: DIORS 16:08
PROVIDERS: PCP Nurse Practitioner Family; Visit Provider Student in an Organized Health Care Education/Training Program
DX: M75.81 Other shoulder lesions, right shoulder (principal)
CPT/HCPCS: 73030

== ENCOUNTER 2024-07-15 02:21 | Outpatient (CLI) | payer BC, SELFPAY ==
--- NOTE | 2024-07-15 09:15 | DI.MRI_ITS ---
Exam(s) MR UPPER JOINT RT WO EXAM: MR UPPER JOINT RT WO CLINICAL HISTORY: Pain, Rt rotator cuff tendinitis, M75.81-other shoulder lesions, rt TECHNIQUE: Multiplanar multisequence MRI of the shoulder was performed. COMPARISON: MR MRI R UPPER JOINT WO CONT from 11/25/2008 CR XR SHOULDER RT COMPLETE 2+V from 07/05/2024 FINDINGS: MARROW:There is no evidence of fracture, Hill-Sachs deformity, nor ominous osseous lesions. GLENOHUMERAL JOINT: Mild degenerative changes. No osteophytes. There is a moderate size glenohumera l joint effusion. There are no loose intra-articular bodies. There are no no degenerative subarticu lar cysts. No osteophytes. ROTATOR CUFF MECHANISM: AC JOINT/ACROMIUM: There is widening of the AC joint which was not evident on the MRI scan of 2008 an d is most probably postsurgical. This space measures 1.5 cm wide and is fluid-filled, this fluid siomara ng continuous with fluid within the acromial space and glenohumeral joint. There is no evidence of os acromiale. Supraspinatus: There is tendinitis signal and there is a full-thickness tear of the supraspinatus ten don located 1 cm above the greater tuberosity. There is no retraction of the musculotendinous juncti on. No muscle atrophy. Infraspinatus: Mild tendinitis signal. No tear. No atrophy. Teres Minor: Intact. No evidence of tear nor muscle atrophy. Subscapularis/anterior cuff: Some increased signal is noted in the most superior aspect of the subsca pularis tendon anterior to the lesser tuberosity. However, there does not appear to be a full thickn ess tear of this structure.. BICEPS TENDON: Exhibits normal position within the intertubercular groove. No evidence of tear. LABRUM: There is mild increased focal signal within the superior labrum posterior to the biceps inser tion site, best seen on fat sat T2 coronal image # 10. This is consistent with mild surface irregula rity. There does not appear to be a prominent tear of the superior labrum and no evidence of paralab ral cyst. The posterior labrum appears intact as does the anterior and inferior labrum. There is no evidence of avulsion of the anterior-inferior labrum and the inferior glenohumeral ligament appears intact. QUADRILATERAL SPACE: No evidence of mass in the region of the axillary nerve and dorsal circumflex hu meral vessels. Visualized triceps muscle at this level appears unremarkable. IMPRESSION: 1. Compared to the prior MRI scan of 2008 there appears to been interval surgery with widening of the AC joint evident. 2. On the present study there is a full-thickness tear of the supraspinatus-rotator cuff tendon appro ximately 1 cm of the of the greater tuberosity, this superimposed upon tendinitis-tendinosis signal. There is a moderate size glenohumeral joint effusion which is continuous through the full-thickness rotator cuff tear into the subacromial-subdeltoid bursa as well as into the widened AC joint space an d this fluid is also continuous above the remaining lateral aspect of the clavicle. 3. Small focus of signal abnormality in the superior labrum posterior to the biceps insertion site ev ident on only 1 image and may represent small focal surface tear irregularity. There does not appear to be a large labral tear at this level and no evidence of paralabral cyst. The remainder of the gl enoid labrum appears intact. DATA REPOSITORY:
== END 2024-07-15 02:41 ==
LOC: DI 02:21
PROVIDERS: PCP Nurse Practitioner Family; Visit Provider Student in an Organized Health Care Education/Training Program
DX: M75.81 Other shoulder lesions, right shoulder (principal)
CPT/HCPCS: 73221

== ENCOUNTER 2024-08-26 08:47 | Outpatient (CLI) | payer BC, SELFPAY ==
[2024-08-26 12:49] LABS: Abs Immature Grans 0.01 10^3/uL (0.0-0.06); Absolute Basophil Count 0.03 10^3/uL (0.0-0.2); Absolute Eosinophil Count 0.04 10^3/uL (0.0-0.7); Absolute Lymphocyte Count 0.86 10^3/uL (1.2-3.4); Absolute Monocyte Count 0.35 10^3/uL (0.1-0.8); Absolute Neutrophil Count 1.91 10^3/uL (1.2-6.7); Basophils % 0.9 %; Eosinophils % 1.3 %; HCT 41.8 % (40.0-50.0); HGB 13.6 g/dL (13.5-17.5); Immature Grans % 0.3 %; Lymphocytes % 26.9 %; MCH 30.3 pg (27.0-33.0); MCHC 32.5 % (32.0-36.0); MCV 93 fL (80-95); MPV 9.8 fL (8.0-11.0); Monocytes % 10.9 %; Neutrophils % 59.7 %; Platelet Count 211 10^3/uL (130-400); RBC 4.49 10^6/uL (4.36-5.78); RDW 12.2 % (11.8-14.1); RDW-SD 42.1 fL
[2024-08-26 13:16] LABS: ALT 33 U/L (16-63); AST 38 U/L (15-37); Albumin 4.3 g/dL (3.4-5.0); Alkaline Phosphatase 50 U/L (46-116); Anion Gap 4.7 mmol/L (3-11); BUN 26 mg/dL (7-18); Bilirubin, Total 1.69 mg/dL (0.2-1.0); CO2 30.3 mmol/L (21.0-32.0); Calcium 10.2 mg/dL (8.5-10.1); Chloride 105 mmol/L (98-107); Cholesterol 173 mg/dL (<200); Estimated GFR 88.33 (mL/min/1.73m2); Glucose 106 mg/dL (74-106); HDL Cholesterol 107 mg/dL (40-60); Potassium 4.9 mmol/L (3.5-5.1); Sodium 140 mmol/L (136-145)
[2024-08-26 13:17] LABS: Triglyceride <25 mg/dL (<150)
[2024-08-26 13:29] LABS: LDL CHOLESTEROL 58 mg/dL (<100)
[2024-08-26 19:00] LABS: PSA, Screening 0.4 ng/mL (<=3.5)
[2024-08-26 19:42] LABS: HBs Antibody, Quant <3.1 mIU/mL (See Note); Hep B Surface Ab Negative (See Note); Hepatitis B Core Antibody Negative (Negative); Hepatitis B Surface Antigen Negative (Negative)
[2024-08-26 19:47] LABS: HIV-1/2 Ag & Ab Screen Negative (Negative)
[2024-08-26 19:52] LABS: Hepatitis C Ab w Rflx HCV PCR Negative (Negative)
== END 2024-08-26 08:48 | disposition home or self-care (01) ==
LOC: LOS 08:47
PROVIDERS: PCP Nurse Practitioner Family; Referring Provider Nurse Practitioner Family; Visit Provider Nurse Practitioner Family
DX: Z00.00 Encounter for general adult medical examination without abnormal findings (principal); I10 Essential (primary) hypertension; Z11.59 Encounter for screening for other viral diseases; Z11.4 Encounter for screening for human immunodeficiency virus [HIV]; Z12.5 Encounter for screening for malignant neoplasm of prostate
CPT/HCPCS: 36415; 80053; 80061; 83721; 84153; 86704; 86706; 86803; 87340; 87389; 85025

== ENCOUNTER 2024-08-27 08:57 | Day surgery (SDC) | payer BC, SELFPAY ==
[2024-08-27] VITALS (22 sets, daily range): BP systolic 98–136; BP diastolic 36–79; PULSE 47–70; RESP 11–22; TEMP 36–36.6; O2SAT 95–99; BMI 26.2
--- NOTE | 2024-08-27 07:16 | W.PM.OP ---
Operative Note Operative Note PRE-OP DIAGNOSIS: Right: 1. Rotator cuff tear 2. SLAP tear 3. Bursitis POST-OP DIAGNOSIS: same PROCEDURE: Right: 1. Rotator cuff repair, CPT# 27693. This involved suture anchor repair of the subscapularis and suture-only repair of the supraspinatus and infraspinatus using anchors and sutures to reattach the rotator cuff back to the footprint of the lesser and greater tuberosity. 2. Arthroscopic biceps tenodesis, CPT# 84867. This involved arthroscopically suturing and reattaching the long head of the biceps tendon to the proximal humerus at the superior margin of the bicipital groove with a screw at the correct tension. 3. Extensive debridement, CPT# 83206. This involved using arthroscopic hand instruments, power instruments, and radiofrequency instruments to release the long head of the biceps tendon and debride areas of labral tearing, synovitis, and chondromalacia about the anterior superior humeral head and lesser tuberosity working within the glenohumeral joint anteriorly, superiorly and posteriorly. 4. Subacromial decompression with partial acromioplasty, CPT# 75269. This involved using arthroscopic power instruments and a radiofrequency wand to complete a bursectomy and smooth the undersurface of the acromion. The assistant womens volleyball coach was medically required in order to help assist in techniques above, which require positioning the arm, holding the arthroscope, and manipulating multiple instruments and sutures at the same time. This cannot be done without the help of an experienced assistant womens volleyball coach. SURGEON: Luca Ramirez SOLE CONFORMING MACHINE OPERATOR: Isidra Knapp ANESTHESIA TYPE: Local By Surgeon, General LMA/ETT and Primary Nerve Block Refer to Anesthesia Record ESTIMATED BLOOD LOSS: 10 PATHOLOGY: none sent COMPLICATIONS: None Patient was transported to: PACU Patient's condition: stable Implants: Arthrex: 4.75mm SwiveLocks x 1 Indications: The patient was diagnosed with the above conditions and appropriately indicated for surgical intervention. Please see complete medical record for details. Findings: Exam under anesthesia: Full range of motion, no instability Glenohumeral joint: Moderate anterior and superior synovitis. Mild anterior labral fraying, unstable biceps anchor SLAP tear. Otherwise intact biceps tendon with mild fraying at adjacent supraspinatus tear. Thickened moderately retracted upper about 50% portion subscapularis with exposed upper lesser tuberosity with fibrillations. Large full-thickness superior rotator cuff tear through the middle to lateral tendon about the rotator cable. Subacromial space: Moderate bursitis. No significant undersurface acromial bone spurring. And void between the distal clavicle and acromion with synovitis here as well. Full-thickness thickened chronic?appearing supraspinatus infraspinatus rotator cuff tear that was medial to the rotator cuff footprint with significant and relatively olvera lateral tendon footprint. Significantly thickened abnormal medial tendon. Procedure Description: In the operating room, general anesthesia was induced. Bilateral shoulders were examined. The patient was positioned in the beachchair position. All bony prominences were well-padded. Preoperative antibiotics were administered. The shoulder was prepped and draped in the usual sterile fashion. The correct patient, procedure, and side of the procedure were all verified prior to incision. Starting through the posterior portal a standard complete diagnostic arthroscopy was performed of the glenohumeral joint including inspection of the long head of the biceps, anterior and superior labrum, subscapularis tendon, supraspinatus and infraspinatus tendons, and axillary recess. The glenoid and humeral head cartilage as well as the posterior labrum were inspected from an anterior viewing portal. Significant findings and interventions noted above. Of note, the [facility] L was released as well as scarring about the capsule and subscapularis to free it for mobility and repair to the lesser tuberosity. Anterior superior lateral portal was established as well as an anterior rigid cannula working through the full-thickness rotator cuff avoid the biceps was secured with a suture tape FiberLink around the tendon and then threw it and it tenotomized from the superior labrum with arthroscopic scissors. It was withdrawn laterally bicipital groove for later repair with the rotator cuff. The subscapularis was mobilized confirmed appropriate to prepared lesser tuberosity footprint without undue tension no arm neutral position. A suture tape FiberLink was used to secure the upper lateral portion and traction used to place a more medial through the central part of the tear and body the tendon FiberTape. The tendon could be repaired nicely to the lesser tuberosity. The undersized punch was used to prepare for a self punching anchor, but the bone was too hard and the anchor removed. The regular punch was then used in a regular double loaded anchor used suture secure with nice tension on all the subscapularis repair sutures as well as the biceps tenodesis suture. The sliding knotless repair suture was then shuttled around the biceps tendon and knots tied but the suture sliding eyelet mechanism failed and these extra sliding stitches simply removed. The subscapularis repair and biceps tendons were stable through testing direct arm pressure and gentle external rotation 30 degrees. Starting through the posterior portal, the arthroscope was directed into the subacromial space. A lateral 50 yard line lateral portal was created. A combination of power instruments and a radiofrequency ablator were used to debride bursitis anteriorly, posteriorly, and laterally as well as expose and smooth bone spurring on the undersurface of the acromion. The coracoacromial ligament was partially released. The bursectomy was completed viewing laterally and working from posteriorly and the rotator cuff was thoroughly inspected with findings noted above. Bursectomy was also done at the abnormal AC joint space. The large tear was carefully inspected debrided lightly of unhealthy tissue and the cuff grasper used to confirm fairly readily able to reapproximate the medial to lateral rotator cuff tissue. The thickened abnormal tendon did not really have excursion for medial to any bony lateral footprint. Decision made to proceed with a tendon to tendon style repair given the significant tendon still present in the tear through the tendon tissue. Along the medialmost aspect of the lateral tendon remnant cartilage was removed and subchondral bone exposed to optimize healing above this area. Given the high risk chronic large tear and medial tendon tear pattern the power pick was used to microfracture along this repair region from anterior to posteriorly as well as lightly just beneath the medial footprint intact tendon laterally. Starting from anterior and working posteriorly the crescent lasso was used to shuttle suture tapes through the lateral tendon remnant incorporating as much olvera tissue as possible and then the scorpion used to shuttle the suture from inferior to superior through the corresponding level of the medial tendon and the tail was carefully organized and snapped. 5 suture tape simple suture configurations were placed spanning from far anterior to posterior. They were then tied sequentially working from anterior to posterior with excellent reapposition and tissue hold closing 1 was a very large tendon defect. Probing showed the repair was stable tendon to tendon edges well reduced and somewhat compressed in the lateral remnant, which thinned posteriorly remained intact to the greater tuberosity and holding the lateral portion of the sutures nicely. The shoulder was drained of arthroscopic fluid. All portal sites were copiously irrigated. These incisions were closed using 3-0 Monocryl in a buried fashion and then covered with Mastisol, Steri-Strips, Xeroform, dry gauze, and ABDs. The dressings were covered and secured with Medipore tape. The operative extremity was placed into a sling for immobilization. The patient awoke from anesthesia without complication and was transferred to the recovery room in a stable condition. Date of Procedure: 08/27/24
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
[2024-08-27] MEDS: Lactated Ringers 1,000 ML 30 ML IV (09:48)
--- NOTE | 2024-08-27 10:31 | PDOC.DSDIS_ITS ---
Date of service: 08/27/24 Discharge Plan Disposition Patient Disposition: Home Condition: Stable Discharge Details Attending Provider: Luca Ramirez Primary Care Provider: Citlalli Jimenez Home Meds and New Rx's Prescriptions: New naproxen 250 mg tablet 250 - 500 mg PO BID PRN (Reason: moderate pain and swelling) Qty: 40 0RF oxycodone 5 mg tablet 5 - 10 mg PO .q4-6h MDD 30 mg PRN (Reason: severe pain) Qty: 18 0RF Continued Excedrin Migraine 250-250-65 mg tablet 1 tab PO ONCE sumatriptan succinate [Imitrex] 50 mg tablet 50 mg PO ONCE PRN (Reason: migraine headache) Qty: 30 1RF Patient Comments: 08/27/24 pt has not taken for 4 months Rx Instructions: Take at first onset of migraine headache, repeat once in 2hrs if needed. losartan 100 mg tablet 100 mg PO DAILY Qty: 90 3RF amlodipine 5 mg tablet 5 mg PO BID Qty: 180 3RF Discharge Instructions Additional Instructions: Surgery: Right shoulder arthroscopy with massive rotator cuff repair (subscapularis and medial trans-tendinous supraspinatus & infraspinatus), biceps tenodesis, extensive debridement, and subacromial decompression. Activity: For 6 weeks, you should keep your arm at your side in a neutral position at all times except for physical therapy. Do not try to lift or raise your arm using your own muscles. You should use the sling whenever you are out of the house. At home it is best to remove the sling and rest the arm on a pillow at your side or support the operative side with your other hand. You may allow the arm to dangle at your side. A physical therapy prescription will be sent electronically to begin in about 3 weeks. CONSERVATIVE protocol. Prescriptions: Naproxen 250 mg take 1-2 every 12 hours with a meal as needed for moderate pain Oxycodone 5 mg take 1-2 every 4-6 hours as needed for severe pain You may use [id number] Tylenol (acetaminophen) as needed for mild pain. These pain medications may be taken all at once or in different combinations as needed. Also, recommend Colace (docusate) as a stool softener as surgery and pain medicine cause constipation. You may try avtf-tab-[id number] diphenhydramine (Benadryl) 25-50 mg nightly as a sleep aid Dressings: Remove shoulder bandage after 3 days. Leave the sticky Steri-Strips in place until they fall off or remove them after you shower. Cover the incisions with Band-Aids or leave them open to air. You may shower after 5 days. Follow-up: 10-[address] Ramirez You may take off the leg compression stockings this evening at home. You may also leave them on a few days longer if you have a history of leg swelling or edema. Let us know right away if you develop any redness, drainage, fevers, chest pain, or trouble breathing. Do not drink alcohol or drive for at least 24 hours after anesthesia. Please call the office during business hours with any questions or concerns. Stand Alone Forms: Anesthesia Discharge Inst., Anes.Nerve Block Instructions, Michael Rachel ([facility]) Referrals: Luca Ramirez MD [ [facility] STAFF PHYSICIAN] - 09/07/24 8:00 am Discharge Orders Discharge Orders: Discharge Order (Routine); Ordered 08/27/24 Ordered By: Isidra Knapp DS: Diagnosis Discharge Diagnosis (1) Rotator cuff tear, right: Status: Acute (2) SLAP lesion of right shoulder: Status: Acute (3) Bursitis of right shoulder: Status: Acute
[2024-08-27] MEDS: ceFAZolin 2 GM/50 ML BAG IVPB (11:05)
[2024-08-27] MEDS: TRANEXAMIC ACID/SOD. CHL. 1,000 MG/100 ML BAG 600 MG IVPB (11:13)
[2024-08-27] MEDS: Bupivacaine 0.25% Pres-Free W/EPI 30 ML VIAL (11:30)
--- NOTE | 2024-08-27 11:34 | W.ANESNERVE ---
Nerve Block Single Injection Procedure Date and Time Date Performed: 08/27/24 Procedure Start: 10:25 Location Where Procedure Performed Procedure Location: Day Surgery Unit Reason Performed: Postoperative Analgesia Requesting Provider: Luca Ramirez Timeout Performed Timeout Performed: Yes Monitoring Used ECG, Blood Pressure, SpO2 and ETCO2 Sterility Sterility: Hand Hygiene, Surgical Cap, Surgical Mask, Sterile Gloves and Chlorhexidine Sedation Given During Procedure Sedation Given (Indicate Dose Given): No Sedation given Patient Mental Status Patient Mental Status: Awake Nerve Block 1st Nerve Block: Laterality: Right Block Type: Interscalene Ultrasound Image Saved?: Yes Needle / Catheter Used: 100mm SonoPlex II Local Anesthetic Bolus (Indicate Dose Given): Lidocaine used for local infiltration of skin, Injected in 3-5ml increments after negative blood aspiration, Bupivacaine 0.5% Dose:: 10 ml and Exparel Dose:: 10 ml Additives (Indicate Dose Given): Normal Saline Ultrasound: Sterile probe cover and gel used Nerve Stimulator: Supplement to Ultrasound use and No twitch or parasthesia noted < 0.5 mA Paresthesia: Right Paresthesia Duration: Transient (Noted some tingling to elbow and pinky on injection along with pressure in shoulder and clavicle. No Stimulation noted, needle tip visualized in LA and away from nerve bundle. Did not repeat on continued injection) Procedure Tolerated: No Complications and Patient tolerated well Procedure Outcome: Successful Performed By: Franco Segundo
--- NOTE | 2024-08-27 14:32 | W.ANESPOSTOP ---
Postoperative Evaluation Date, Time and Location Date Performed: 08/27/24 Time Performed: 14:22 Patient Location: Day Surgery Unit Vital Signs Most Recent Imported Vital Signs: Most Recent Vital Signs Temp Pulse Resp BP Pulse Ox 36.6 C 59 L 15 103/63 96 08/27/24 14:28 08/27/24 14:15 08/27/24 14:15 08/27/24 14:12 08/27/24 14:15 Pain Score Most Recent Pain Score: Most Recent Pain Score Pain Level 0 08/27/24 14:28 Assessment Mental Status: Awake (Alert & Oriented to Patient Baseline) Airway and Respiratory Function: Patent airway with normal (patient baseline) respiratory exam Cardiovascular Function: Hemodynamically Stable Hydration Status: Adequately Hydrated Nausea & Vomiting: No Nausea or Vomiting Pain: Pt. Denies Any Pain Peripheral Nerve Block: Regional nerve block not resolved at time of post operative discharge
== END 2024-08-27 16:19 | disposition home or self-care (01) ==
LOC: SUR 08:58
PROVIDERS: PCP Nurse Practitioner Family; Visit Provider Student in an Organized Health Care Education/Training Program
PROC: (CPT 29827; principal; 2024-08-27 10:15)
DX: M75.101 Unspecified rotator cuff tear or rupture of right shoulder, not specified as traumatic (principal); S43.431A Superior glenoid labrum lesion of right shoulder, initial encounter; M75.51 Bursitis of right shoulder; W11.XXXA Fall on and from ladder, initial encounter; G89.18 Other acute postprocedural pain
CPT/HCPCS: 29827; 29828; 29823; 29826; 64415; J0131; J0665; J0666; J0690; J1100; J1885; J2003; J2250; J2371; J2405; J2704; J3475

== ENCOUNTER 2024-09-06 02:20 | Outpatient (CLI) | payer BC, SELFPAY ==
[2024-09-06 15:25] LABS: Abs Immature Grans 0.01 10^3/uL (0.0-0.06); Absolute Basophil Count 0.04 10^3/uL (0.0-0.2); Absolute Eosinophil Count 0.04 10^3/uL (0.0-0.7); Absolute Lymphocyte Count 1.31 10^3/uL (1.2-3.4); Absolute Monocyte Count 0.63 10^3/uL (0.1-0.8); Absolute Neutrophil Count 5.04 10^3/uL (1.2-6.7); Basophils % 0.6 %; Eosinophils % 0.6 %; HCT 40.3 % (40.0-50.0); HGB 13.7 g/dL (13.5-17.5); Immature Grans % 0.1 %; Lymphocytes % 18.5 %; MCH 30.2 pg (27.0-33.0); MCV 89 fL (80-95); MPV 8.8 fL (8.0-11.0); Monocytes % 8.9 %; Neutrophils % 71.3 %; Platelet Count 264 10^3/uL (130-400); RBC 4.54 10^6/uL (4.36-5.78); RDW 12.1 % (11.8-14.1); RDW-SD 39.5 fL; WBC 7.07 10^3/uL (4.4-10.8)
[2024-09-06 16:23] LABS: ALT 48 U/L (16-63); AST 21 U/L (15-37); Alkaline Phosphatase 57 U/L (46-116); Bilirubin, Direct 0.2 mg/dL (0.0-0.2); Bilirubin, Total 1.18 mg/dL (0.2-1.0)
== END 2024-09-06 02:21 | disposition home or self-care (01) ==
PROVIDERS: PCP Nurse Practitioner Family; Visit Provider Nurse Practitioner Family
DX: E80.6 Other disorders of bilirubin metabolism (principal)
CPT/HCPCS: 36415; 80076; 85025